=== PATIENT | female | born 1975 ===

== ENCOUNTER 2018-05-15 09:19 | Emergency (ER) | payer BC ==
[2018-05-15 09:56] VITALS: BP 107/75
--- NOTE | 2018-05-15 10:31 | UC ---
Upper Extremity HPI - HPI Summary HPI Summary: Left elbow pain on the skin. No sherry pain. No reduced ROM. NO fever or chills. She hit her elbow on a plywood Sunday. There was a very small abrasion. She did not see an obvious splinter or FB. She denies DM. She has had tenderness there. - History of Current Complaint Chief Complaint: UCUpperExtremity Stated Complaint: LEFT ELBOW INJURY Time Seen by Provider: 05/15/18 10:14 Hx Obtained From: Patient Hx Last Menstrual Period: 05/05/18 Onset/Duration: Sudden Onset, Lasting Days Severity Initially: Moderate Severity Currently: Moderate Pain Intensity: 1 Location Of Pain: Is Discrete @ Character: Sharp, Aching Aggravating Factor(s): Other - palpation. Alleviating Factor(s): Rest Associated Signs And Symptoms: Positive: Swelling - Allergies/Home Medications Allergies/Adverse Reactions: Allergies Allergy/AdvReac Type Severity Reaction Status Date / Time No Known Allergies Allergy Verified 05/15/18 09:50 PMH/Surg Hx/FS Hx/Imm Hx Previously Healthy: Yes - Surgical History Surgical History: None - Family History Known Family History: Positive: Other - no related fh of skin disease. - Social History Alcohol Use: Rare Substance Use Type: None Smoking Status (MU): Never Smoked Tobacco - Immunization History Most Recent Tetanus Shot: 2012 Review of Systems Skin: Other - skin swelling and tenderness. All Other Systems Reviewed And Are Negative: Yes Physical Exam Triage Information Reviewed: Yes Appearance: Well-Appearing, No Pain Distress, Well-Nourished Vital Signs: Initial Vital Signs Temp 98.6 F 05/15/18 09:50 Pulse 72 05/15/18 09:50 Resp 16 05/15/18 09:50 BP 107/75 05/15/18 09:50 Pulse Ox 100 05/15/18 09:50 Vital Signs Reviewed: Yes Eyes: Positive: Conjunctiva Clear ENT: Positive: Normal ENT inspection Neck: Negative: Nuchal Rigidity Respiratory: Positive: No accessory muscle use. Negative: Respiratory distress Cardiovascular: Positive: Brisk Capillary Refill Abdomen Description: Negative: Distended Musculoskeletal Exam: Other - No sherry tenderness. There is oval 1cm long area of swelling and tenderness that is very localized. No fluctuance. No streaking or crepitus. No joint effusion. Musculoskeletal: Positive: Strength Intact, ROM Intact Neurological: Positive: Alert, Muscle Tone Normal. Negative: Fatigued Psychological: Positive: Age Appropriate Behavior Skin: Positive: Other - skin swelling localized. Upper Extremity Course/Dx - Course Course Of Treatment: She has a 1mm area of abrasion. No obvious FB. The induration is localized. She agrees to have this looked at in [place] when she gets back home if this is not better. We discussed possibel need for MRI to eval for wooden FB. She is aware that this cannot be found on xray. She is also aware that there may be no FB at all and this may be all infectious related. - Differential Dx/Diagnosis Provider Diagnoses: cellulitis. possible wooden FB. Discharge - Sign-Out/Discharge Documenting (check all that apply): Discharge/Admit/Transfer - Discharge Plan Condition: Good Disposition: HOME Prescriptions: Sulfamethox/Trimethoprim DS* [Bactrim DS 800/160 TAB*] 1 tab PO BID #[id number] tab Patient Education Materials: Cellulitis (ED) Referrals: Non Staff,Doctor [Primary Care Provider] - Additional Instructions: As we discussed please try to find a primary care doctor to f/u with on Sunday. If you cannot and this is not any better, please go to the ED for re evaluation if not better. - Billing Disposition and Condition Condition: GOOD Disposition: Home
== END 2018-05-15 10:40 | disposition home or self-care (01) ==
LOC: UCCORT 09:19
DX: L03.114 Cellulitis of left upper limb (principal); W22.8XXA Striking against or struck by other objects, initial encounter; Y93.9 Activity, unspecified; Y92.9 Unspecified place or not applicable
CPT/HCPCS: 99202; G0463